=== PATIENT | male | born 1960 | race Caucasian/White ===

== ENCOUNTER 2023-12-10 10:22 | Emergency (ER) | payer MEDICARE, MEDICAID ==
[2023-12-10 11:09] LABS: BASOPHILS ABSOLUTE AUTO 0.1 K/mm3 (0.0-0.2); EOSINOPHILS ABSOLUTE AUTO 0.2 K/mm3 (0.0-0.4); EOSINOPHILS PERCENT AUTO 2.8 % (0.0-6.0); HEMATOCRIT 49.2 % (42.0-52.0); HEMOGLOBIN 16.6 gm/dl (14.0-18.0); IMMATURE GRAN ABSOLUTE AUTO 0.01 K/mm3 (0.00-0.05); IMMATURE GRAN PERCENT AUTO 0.2 % (0.0-0.4); LYMPHOCYTES ABSOLUTE AUTO 2.3 K/mm3 (1.0-4.8); LYMPHOCYTES PERCENT AUTO 37.3 % (24.0-44.0); MEAN CORPUSCULAR HEMOGLOBIN 31.1 pg (28.0-32.0); MEAN CORPUSCULAR HGB CONC 33.7 g/dl (32.0-36.0); MEAN CORPUSCULAR VOLUME 92.3 fl (83.0-99.0); MEAN PLATELET VOLUME 9.5 fl (9.4-12.4); MONOCYTES ABSOLUTE AUTO 0.6 K/mm3 (0.0-0.8); NEUTROPHILS PERCENT AUTO 48.7 % (41.0-71.0); PLATELET COUNT,PLT 194 K/mm3 (150-400); RED BLOOD CELL COUNT 5.33 M/mm3 (4.52-5.90); WHITE BLOOD CELL COUNT,WBC 6.11 K/mm3 (3.9-11.3)
[2023-12-10] MEDS: Pantoprazole 40 MG Vial IVPUSH ONE (11:18)
[2023-12-10] MEDS: Alum Hydrox/Mag Hydrox/Simeth 30 ML, Lidocaine 2% 15 ML PO ONE (11:19)
[2023-12-10 11:24] LABS: A/G RATIO 1.2 (1-2); ALANINE AMINOTRANSFERASE,ALT 20 U/L (16-63); ALBUMIN 4.2 g/dl (3.4-5.0); ALKALINE PHOSPHATASE 61 U/L (46-116); ANION GAP 11.4 (5-15); ASPARTATE AMNIOTRANSFERASE,AST 18 U/L (15-37); BILIRUBIN TOTAL 0.4 mg/dL (0.2-1.0); BLOOD UREA NITROGEN,BUN 16 mg/dL (7-18); BUN/CREATININE RATIO 10.7 (14-18); CARBON DIOXIDE,CO2 31 mEq/L (21-32); CHLORIDE,CL 103 mEq/L (98-107); CREATININE 1.5 mg/dL (0.7-1.3); ESTIMATED GFR 52 mL/min (>60); GLUCOSE RANDOM 93 mg/dL (70-99); POTASSIUM,K 4.4 mEq/L (3.5-5.1); PROTEIN TOTAL,TP 7.7 g/dl (6.4-8.2); SODIUM,NA 141 mEq/L (136-145)
[2023-12-10] MEDS: Sodium Chloride 0.9% 10 ML Syringe FLUSH PRN (11:24)
[2023-12-10 12:03] LABS: TROPONIN I HIGH SENSITIVITY 4 pg/mL (<=76)
== END 2023-12-10 13:18 | disposition home or self-care (01) ==
LOC: JD.ED 10:22
DX: R07.89 Other chest pain (principal); I10 Essential (primary) hypertension; E78.00 Pure hypercholesterolemia, unspecified; K21.9 Gastro-esophageal reflux disease without esophagitis; Z79.899 Other long term (current) drug therapy; Z88.1 Allergy status to other antibiotic agents; Z91.018 Allergy to other foods
CPT/HCPCS: 36415; 71045; 80053; 84484; 85025; 93005; 96374; 99285; A9270; C9113; J3490; 93010; 99284